=== PATIENT | female | born 1965 | race Caucasian/White ===

== ENCOUNTER 2017-01-19 17:11 | Inpatient (IN) | payer SELFPAY ==
[~2017-01-19] VITALS: Ht 165.1 cm; Wt 78.6 kg
[2017-01-19] VITALS (11 sets, daily range): BP systolic 131–271; BP diastolic 75–141; PULSE 72–96; RESP 16–20; TEMP 98.4; O2SAT 92–97
[2017-01-19] MEDS ORDERED: SODIUM CHLOR 0.9% 1000 ML INJ 1,000 ML IV ONE ×2 (17:27→19:45)
[2017-01-19] MEDS ORDERED: PROCHLORPERAZINE INJ 10 MG/2 ML VIAL IVP ONE (17:30)
[2017-01-19] MEDS ORDERED: KETOROLAC TROMETHAMINE 30 MG/ML (IVP) VIAL IVP ONE (17:30)
[2017-01-19] MEDS ORDERED: SODIUM CHLORIDE 0.9% FLUSH 10 ML FLUSH IVF PRN (17:30)
[2017-01-19] MEDS ORDERED: niCARdipine INJ 25 MG in SODIUM CHLOR 0.9% 250 ML INJ 250 ML IV ONE (17:30)
[2017-01-19] MEDS ORDERED: diphenhydrAMINE HCL 50 MG/ML VIAL IVP ONE (17:30)
--- NOTE | 2017-01-19 17:37 | PD ---
HPI Chief Complaint: Neuro Symptoms/ Deficits Time Seen by Provider: 17:36 (Elayne Altamirano) Time Seen by Provider: 17:35 (Mundo Aguillon MD) Travel History International Travel<30 days: No Contact w/Intl Traveler<30days: No Traveled to known affect area: No (Elayne Altamirano) International Travel<30 days: No Contact w/Intl Traveler<30days: No (Mundo Aguillon MD) History of Present Illness HPI 51-year-old female presents to the ED for evaluation of paresthesias and headache. Onset just before arrival. Patient states that she got in her car after work today and experienced pins and needles feeling of her leg which rapidly ascended to the right arm and face. This was followed by dull right sided headache and accompanying nausea and mild dizziness. She denies vision changes, chest pain, palpitations, shortness of breath, abdominal pain, vomiting , dysuria, weakness of the extremities. She denies chronic illnesses and takes no daily medications. She does state that her blood pressure sometimes runs high but she does not monitor it. (Elayne Altamirano) HPI 53-year-old female arrives complaining of paresthesias in the right face right arm and right leg. It started about an hour prior to ER arrival. When she arrived to the ER stroke assessment was performed and the patient had normal and symmetric motor function in the upper and lower extremities. The cranial nerves are equal and symmetrically intact. Speech memory and mentation were normal. Sensation to pin and light tough preserved throughout the upper and lower extremities bilaterally. In the absence of focal deficit TPA would serve no roll in the management of the patient and a stroke alert was not called. Cardene drip was initiated given marked hypertension upon arrival. (Mundo Aguillon MD) [facility] Past Medical History Diminished Hearing: No Hypertension: Yes Tetanus Vaccination: Unknown Influenza Vaccination: No ?: Not (Elayne Altamirano) Past Surgical History Surgical History: No Previous Surgery Hysterectomy: Yes (Elayne Altamirano) Social History Alcohol Use: No Tobacco Use: Yes (1 PPD) Substance Use: No (Elayne Altamirano) Allergies-Medications (Allergen,Severity, Reaction): Coded Allergies: No Known Allergies (Unverified , 01/19/17) Reported Meds & Prescriptions Reported Meds & Active Scripts Active No Active Prescriptions or Reported Medications (Mundo Aguillon MD) Review of Systems Except as stated in HPI: all other systems reviewed are Neg (Elayne Altamirano ) Except as stated in HPI: all other systems reviewed are Neg General / Constitutional: No: Fever Neurologic: Positive: Headache, Paresthesia, No: Weakness, Syncope, Focal Abnormalities, Coordination Problem, Tremor, Ataxia, Change in Mentation, Slurred Speech, Incontinence, Seizures (Mundo Aguillon MD) Physical Exam Narrative GENERAL: Well-nourished, well-developed white female in no acute distress. SKIN: Focused skin assessment warm/dry. Multiple tattoos. HEAD: Normocephalic. EYES: No scleral icterus. No injection or drainage. PERRLA. EOMI. No evidence of papilledema NECK: Supple, trachea midline. No JVD or lymphadenopathy. CARDIOVASCULAR: Regular rate and rhythm without murmurs, gallops, or rubs. 2+ DP and radial pulses bilaterally. RESPIRATORY: Breath sounds clear and equal bilaterally. No accessory muscle use. GASTROINTESTINAL: Abdomen soft, non-tender, nondistended. Active bowel sounds MUSCULOSKELETAL: No cyanosis, or edema. NEUROLOGICAL: Awake and alert. Cranial nerves II through XII intact. Motor and sensory grossly within normal limits. Five out of 5 muscle strength in all muscle groups. Normal speech. No ataxia. No pronator drift. BACK: Nontender without obvious deformity. No CVA tenderness. (Elayne Altamirano) Narrative GENERAL: WNWD, pleasant 51 yo F, appropriate distress SKIN: Warm and dry. HEAD: Atraumatic. Normocephalic. EYES: Pupils equal and round. No scleral icterus. No injection or drainage. ENT: No nasal bleeding or discharge. Mucous membranes pink and moist. NECK: Trachea midline. No JVD. CARDIOVASCULAR: Regular rate and rhythm. RESPIRATORY: No accessory muscle use. Clear to auscultation. Breath sounds equal bilaterally. GASTROINTESTINAL: Abdomen soft, non-tender, nondistended. Hepatic and splenic margins not palpable. MUSCULOSKELETAL: Extremities without clubbing, cyanosis, or edema. No obvious deformities. NEUROLOGICAL: No pronator drift. Cranial nerves III through XII are normal. Motor function in the upper and lower extremities is equal and symmetric and normal. The patient is ambulatory. Her speech memory mentation are normal. Sensation in the upper and lower extremities as well as the face is preserved with pin and fine touch. PSYCHIATRIC: Appropriate mood and affect; insight and judgment normal. (Mundo Aguillon MD) Data Data Last Documented VS Vital Signs Date Time Temp Pulse Resp B/P Pulse Ox O2 Delivery O2 Flow Rate FiO2 01/19/17 19:00 92 19 176/83 94 Nasal Cannula 2 01/19/17 17:13 98.4 VS reviewed (Mundo Aguillon MD) Orders Electrocardiogram (01/19/17 ) Complete Blood Count With Diff (01/19/17:) Basic Metabolic Panel (Bmp) (01/19/17:) Prothrombin Time / Inr (Pt) (01/19/17) Act Partial Throm Time (Ptt) (01/19/17) Ecg Monitoring (01/19/17) Iv Access Insert/Monitor (01/19/17:) Oximetry (01/19/17:) Sodium Chloride 0.9% Flush (Ns Flush) (01/19/17 17:30) Ketorolac Inj (Toradol Inj) (01/19/17 17:30) Prochlorperazine Inj (Compazine Inj) (01/19/17 17:30) Diphenhydramine Inj (Benadryl Inj) (01/19/17 17:30) Sodium Chlor 0.9% 1000 Ml Inj (Ns 1000 M (01/19/17 17:) Ckmb (Isoenzyme) Profile (01/19/17:) Troponin I (01/19/17:) Chest, Single Ap (01/19/17:27) Nicardipine Inj (Cardene Inj) (01/19/17 17:30) Ondansetron Inj (Zofran Inj) (01/19/17 18:15) CKMB (01/19/17 17:30) CKMB% (01/19/17 17:30) Admit Order (Ed Use Only) (01/19/17 19:14) (Mundo Aguillon MD) Labs Laboratory Tests Test 01/19/17 17:30 White Blood Count 9.8 TH/MM3 Red Blood Count 4.64 MIL/MM3 Hemoglobin 14.5 GM/DL Hematocrit 44.1 % Mean Corpuscular Volume 95.2 FL Mean Corpuscular Hemoglobin 31.4 PG Mean Corpuscular Hemoglobin 33.0 % Concent Red Cell Distribution Width 13.1 % Platelet Count 327 TH/MM3 Mean Platelet Volume 8.7 FL Neutrophils (%) (Auto) 54.4 % Lymphocytes (%) (Auto) 31.3 % Monocytes (%) (Auto) 6.4 % Eosinophils (%) (Auto) 5.3 % Basophils (%) (Auto) 2.6 % Neutrophils # (Auto) 5.3 TH/MM3 Lymphocytes # (Auto) 3.1 TH/MM3 Monocytes # (Auto) 0.6 TH/MM3 Eosinophils # (Auto) 0.5 TH/MM3 Basophils # (Auto) 0.3 TH/MM3 CBC Comment DIFF FINAL Differential Comment Prothrombin Time 10.0 SEC Prothromb Time International 0.9 RATIO Ratio Activated Partial 27.6 SEC Thromboplast Time Sodium Level 142 MEQ/L Potassium Level 3.6 MEQ/L Chloride Level 106 MEQ/L Carbon Dioxide Level 25.7 MEQ/L Anion Gap 10 MEQ/L Blood Urea Nitrogen 26 MG/DL Creatinine 0.84 MG/DL Estimat Glomerular Filtration 71 ML/MIN Rate Random Glucose 88 MG/DL Calcium Level 9.7 MG/DL Total Creatine Kinase 128 U/L Creatine Kinase MB 2.5 NG/ML Troponin I LESS THAN 0.02 NG/ML (Mundo Aguillon MD) [facility] Medical Decision Making Medical Screen Exam Complete: Yes Emergency Medical Condition: Yes Differential Diagnosis Acute cephalgia versus ICH versus hypertensive urgency versus hypertensive emergency versus electrolyte abnormality versus Narrative Course 51-year-old female presents to the ED for evaluation of paresthesias and headache. Onset just before arrival. Patient endorses pending the needles in the right leg which rapidly ascended to the right arm and face. This was followed shortly by a dull right-sided headache with nausea and dizziness. Denies vision changes, chest pain, palpitations,'s SOB, abdominal pain, and/V, weakness of the extremities. BP 271/133 on presentation. Physical exam reveals a nontoxic-appearing white female in no acute distress. No papilledema , no focal neural deficits. IV was established. Patient was placed on continuous monitoring. She was administered IV Toradol, Benadryl and Compazine. Cardene drip was initiated. CBC: WBC 9.8, hemoglobin 14.5. INR 0.9. CMP: BUN 26 Cardiac enzymes: Negative 1. EKG: Rate 72, sinus rhythm with short HI interval. Normal axis. No ST elevations or depressions. Reviewed by Dr. Aguillon. CT of the head: Small area of pontine hemorrhage. Nonspecific white matter densities. Contrast MRI recommended. On recheck the patient reports improvement of her headache symptoms. BP currently 176/83. This is hypertensive emergency with pontine hemorrhage. MRI ordered. Call placed to Dr. Laurent. He recommends admission to the [facility] and will follow the patient. I spoke to Dr. Lara who agrees to accept the patient to the service. Please see neuro and medicine notes for disposition. ( Elayne Altamirano) Medical Screen Exam Complete: Yes Emergency Medical Condition: Yes Medical Record Reviewed: Yes Differential Diagnosis Hypertensive encephalopathy, paresthesia, medication side effect, in the absence of a focal neurologic deficit CVA is considered less likely Narrative Course Please refer to [facility] note. (Mundo Aguillon MD) Scripts No Active Prescriptions or Reported Meds Elayne Altamirano January 19, 2017 17:37 Mundo Aguillon MD January 20, 2017 08:08
[2017-01-19 18:01] LABS: AUTOMATED NEUTROPHIL # 5.3 TH/MM3 (1.8-7.7); BASOPHIL # 0.3 TH/MM3 (0-0.2); BASOPHIL % 2.6 % (0.0-2.0); EOSINOPHIL # 0.5 TH/MM3 (0-0.4); EOSINOPHIL % 5.3 % (0.0-4.0); HEMATOCRIT 44.1 % (35.0-46.0); HEMO FLAGS DIFF FINAL; LYMPH % 31.3 % (9.0-44.0); LYMPHOCYTE # 3.1 TH/MM3 (1.0-4.8); MEAN CELL VOLUME 95.2 FL (80.0-100.0); MEAN CORPUSCULAR HEMOGLOBIN 31.4 PG (27.0-34.0); MONO % 6.4 % (0.0-8.0); NEUT % 54.4 % (16.0-70.0); PLATELET COUNT 327 TH/MM3 (150-450); RED BLOOD COUNT 4.64 MIL/MM3 (4.00-5.30); RED CELL DISTRIBUTION WIDTH 13.1 % (11.6-17.2); WHITE BLOOD COUNT 9.8 TH/MM3 (4.0-11.0)
[2017-01-19 18:09] LABS: APTT (PATIENT) 27.6 SEC (24.3-30.1); INTERNATIONAL NORMALIZED RATIO 0.9 RATIO
[2017-01-19] MEDS ORDERED: ONDANSETRON HCL 4 MG/2 ML VIAL IV PUSH ONE (18:15)
[2017-01-19 18:25] LABS: ANION GAP 10 MEQ/L (5-15); BICARBONATE 25.7 MEQ/L (21.0-32.0); BLOOD UREA NITROGEN 26 MG/DL (7-18); CHLORIDE 106 MEQ/L (98-107); GLOMERULAR FILTRATION RATE 71 ML/MIN (>89); POTASSIUM 3.6 MEQ/L (3.5-5.1); SODIUM (NA) 142 MEQ/L (136-145)
[2017-01-19 18:29] LABS: CREATINE KINASE 128 U/L (26-192)
--- NOTE | 2017-01-19 18:35 | RADRPT ---
EXAM DATE/TIME: 01/19/2017 17:47 [facility] COMPARISON: No previous studies available for comparison. INDICATIONS : Complains of heart palpitations. Shortness of breath. MEDICAL HISTORY : None. SURGICAL HISTORY : None. ENCOUNTER: Initial ACUITY: 1 day PAIN SCORE: Non-responsive. LOCATION: chest FINDINGS: A single view of the chest demonstrates the lungs to be symmetrically aerated without evidence of mas s, infiltrate or effusion. The cardiomediastinal contours are unremarkable. Osseous structures are intact. CONCLUSION: No acute disease. Jerad Hernandes MD on January 19, 2017 at 18:32 Board Certified Radiologist. This report was verified electronically.
[2017-01-19 18:41] LABS: CKMB 2.5 NG/ML (0.5-3.6)
[2017-01-19] MEDS ORDERED: niCARdipine INJ 25 MG in SODIUM CHLOR 0.9% 250 ML INJ 250 ML IV PRN (19:45)
[2017-01-19] MEDS ORDERED: ACETAMINOPHEN 325 MG TAB PO PRN ×2 (19:45→21:15)
[2017-01-19] MEDS ORDERED: BISACODYL 10 MG SUPP RECTAL PRN (19:45)
[2017-01-19] MEDS ORDERED: MORPHINE SULFATE 4 MG/ML INJ IV PRN (19:45)
[2017-01-19] MEDS ORDERED: ONDANSETRON HCL 4 MG/2 ML VIAL IVP PRN (19:45)
[2017-01-19] MEDS ORDERED: SODIUM CHLORIDE 0.9% FLUSH 10 ML FLUSH IV FLUSH PRN (19:45)
[2017-01-19] MEDS ORDERED: ACETAMINOPHEN/HYDROcodone 325 MG/5 MG TAB PO PRN (19:45)
--- NOTE | 2017-01-19 19:51 | HHI.HP ---
[facility] Service [facility] Primary Care Physician No Primary Care Physician Admission Diagnosis hypertensive emergency Diagnoses: Travel History International Travel<30 Days: No Contact w/Intl Traveler <30 Da: No Traveled to Known Affected Are: No Past Family Social History Allergies: Coded Allergies: No Known Allergies (Unverified , 01/19/17) Physical Exam Vital Signs Vital Signs Date Time Temp Pulse Resp B/P Pulse Ox O2 Delivery O2 Flow Rate FiO2 01/19/17 19:33 16 01/19/17 19:00 92 19 176/83 94 Nasal Cannula 2 01/19/17 18:45 89 19 183/88 92 Room Air 01/19/17 18:30 88 19 196/88 94 Room Air 01/19/17 18:15 89 19 215/102 94 Room Air 01/19/17 18:07 97 Room Air 01/19/17 18:00 72 20 244/134 97 Room Air 01/19/17 17:25 76 19 271/133 96 Room Air 01/19/17 17:13 98.4 90 16 219/141 97 Physical Exam GENERAL: This is a well-nourished, well-developed patient, in no apparent distress. SKIN: No rashes, ecchymoses or lesions. Cool and dry. HEAD: Atraumatic. Normocephalic. No temporal or scalp tenderness. EYES: Pupils equal round and reactive. Extraocular motions intact. No scleral icterus. No injection or drainage. ENT: Nose without bleeding, purulent drainage or septal hematoma. Throat without erythema, tonsillar hypertrophy or exudate. Uvula midline. Airway patent. NECK: Trachea midline. No JVD or lymphadenopathy. Supple, nontender, no meningeal signs. CARDIOVASCULAR: Regular rate and rhythm without murmurs, gallops, or rubs. RESPIRATORY: Clear to auscultation. Breath sounds equal bilaterally. No wheezes , rales, or rhonchi. GASTROINTESTINAL: Abdomen soft, non-tender, nondistended. No hepato-splenomegaly , or palpable masses. No guarding. MUSCULOSKELETAL: Extremities without clubbing, cyanosis, or edema. No joint tenderness, effusion, or edema noted. No calf tenderness. Negative Homans sign bilaterally. NEUROLOGICAL: Awake and alert. Cranial nerves II through XII intact. Motor and sensory grossly within normal limits. Five out of 5 muscle strength in all muscle groups. Normal speech. Laboratory Laboratory Tests Test 01/19/17 17:30 White Blood Count 9.8 Red Blood Count 4.64 Hemoglobin 14.5 Hematocrit 44.1 Mean Corpuscular Volume 95.2 Mean Corpuscular Hemoglobin 31.4 Mean Corpuscular Hemoglobin 33.0 Concent Red Cell Distribution Width 13.1 Platelet Count 327 Mean Platelet Volume 8.7 Neutrophils (%) (Auto) 54.4 Lymphocytes (%) (Auto) 31.3 Monocytes (%) (Auto) 6.4 Eosinophils (%) (Auto) 5.3 Basophils (%) (Auto) 2.6 Neutrophils # (Auto) 5.3 Lymphocytes # (Auto) 3.1 Monocytes # (Auto) 0.6 Eosinophils # (Auto) 0.5 Basophils # (Auto) 0.3 CBC Comment DIFF FINAL Differential Comment Prothrombin Time 10.0 Prothromb Time International 0.9 Ratio Activated Partial 27.6 Thromboplast Time Sodium Level 142 Potassium Level 3.6 Chloride Level 106 Carbon Dioxide Level 25.7 Anion Gap 10 Blood Urea Nitrogen 26 Creatinine 0.84 Estimat Glomerular Filtration 71 Rate Random Glucose 88 Calcium Level 9.7 Total Creatine Kinase 128 Creatine Kinase MB 2.5 Troponin I LESS THAN 0.02 Result Diagram: 01/19/17 1730 01/19/17 173 Physician Certification Order for Inpatient Services The services are ordered in accordance with Medicare regulations or non- Medicare payer requirements, as applicable. In the case of services not specified as inpatient-only, they are appropriately provided as inpatient services in accordance with the 2-midnight benchmark. days is the estimated time the patient will need to remain in the hospital, assuming treatment plan goals are met and no additional complications. Jaja Ramírez MD January 19, 2017 19:51
--- NOTE | 2017-01-19 20:35 | RADRPT ---
EXAM DATE/TIME: 01/19/2017 20:19 [facility] COMPARISON: No previous studies available for comparison. INDICATIONS : Hypertension, numbness both hands RADIATION DOSE: 31.73 CTDIvol (mGy) MEDICAL HISTORY : Hypertension. SURGICAL HISTORY : None. ENCOUNTER: Initial ACUITY: 1 day PAIN SCALE: 3/10 LOCATION: Bilateral upper extremity TECHNIQUE: Multiple contiguous axial images were obtained of the head. Using automated exposure control and adj ustment of the mA and/or kV according to patient size, radiation dose was kept as low as reasonably a chievable to obtain optimal diagnostic quality images. FINDINGS: There is a small focus of spontaneously increased density in the posterior left paramedian sammy consi stent with small brainstem hemorrhage. This measures about 8 mm in size at present. There is minimal adjacent parenchymal hypodensity. There is no evidence of macroscopic hemorrhage elsewhere in the bra in. There are occasional small areas of diminished white matter attenuation present including within the quintanilla array bilaterally and the right internal and external capsules. There is nothing to otherw ise suggest acute infarction. The ventricles are symmetric and normal. Extracranial structures are be nign and intact. CONCLUSION: Small area of pontine hemorrhage. Occasional areas of white matter hypodensity which are nonspecific. Followup, ideally with contrast M RI would be suggested. Jerad Hernandes MD on January 19, 2017 at 20:29 Board Certified Radiologist. This report was verified electronically.
[2017-01-19] MEDS ORDERED: SODIUM CHLORIDE 0.9% FLUSH 10 ML FLUSH IV FLUSH SCH (21:00)
--- NOTE | 2017-01-19 21:08 | HHI.HP ---
HPI Service Critical Care Medicine Primary Care Physician No Primary Care Physician Admission Diagnosis hypertensive emergency Diagnosis: Travel History International Travel<30 Days: No Contact w/Intl Traveler <30 Da: No Traveled to Known Affected Are: No History of Present Illness 51-year-old female presents for evaluation of paresthesias and headache. Onset of symptoms just prior to arrival. Patient states that she got in her car after work today and experienced pins and needles feeling of her leg which rapidly ascended to the right arm and face. This was followed by dull right sided headache and accompanying nausea and mild dizziness. 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 Review of Systems Constitutional: COMPLAINS OF: Diaphoretic episodes, Dizziness, DENIES: Fatigue , Fever, Weight gain, Weight loss, Chills, Change in appetite, Night Sweats Endocrine: DENIES: Abnorml menstrual pattern, Heat/cold intolerance, Polydipsia , Polyuria, Polyphagia Eyes: DENIES: Blurred vision, Diplopia, Eye inflammation, Eye pain, Vision loss , Photosensitivity, Double Vision Ears, nose, mouth, throat: COMPLAINS OF: Tinnitus, DENIES: Hearing loss, Vertigo, Nasal discharge, Oral lesions, Throat pain, Hoarseness, Ear Pain, Running Nose, Epistaxis, Sinus Pain, Toothache, Odynophagia Respiratory: DENIES: Apneas, Cough, Snoring, Wheezing, Hemoptysis, Sputum production, Shortness of breath Cardiovascular: DENIES: Chest pain, Palpitations, Syncope, Dyspnea on Exertion , PND, Lower Extremity Edema, Orthopnea, Claudication Gastrointestinal: DENIES: Abdominal pain, Black stools, Bloody stools, Constipation, Diarrhea, Nausea, Vomiting, Difficulty Swallowing, Anorexia Genitourinary: DENIES: Abnormal vaginal bleeding, Dysmenorrhea, Dyspareunia, Sexual dysfunction, Urinary frequency, Urinary incontinence, Urgency, Hematuria , Dysuria, Nocturia, Vaginal discharge Past Family Social History Allergies: Coded Allergies: No Known Allergies (Unverified , 01/19/17) Past Medical History Hypertension Past Surgical History Hysterectomy Reported Medications Reported Meds & Active Scripts Active No Active Prescriptions or Reported Medications Active Ordered Medications Current Medications Medications (Trade) Dose Ordered Sig/Keisha Route PRN Reason Start Time Stop Time Status Last Admin Dose Admin Bisacodyl (Dulcolax Supp) 10 mg DAILY PRN RECTAL CONSTIPATION 01/19/17 19:45 Acetaminophen/ Hydrocodone Bitart (Winifred 5-325 Mg) 1 tab Q4H PRN PO PAIN SCALE 3 TO 5 01/19/17 19:45 Lorazepam 1 mg 1 mg ONCE PRN IV PUSH CLAUSTROPHOBIA 01/19/17 20:00 01/22/17 19:59 01/19/17 21:55 Sodium Chloride (NS 1000 ml Inj) 1,000 ml @ 84 mls/hr [id number] IV 01/19/17 21:03 Sodium Chloride (NS Flush) 2 ml UNSCH PRN .XX FLUSH AFTER USING IV ACCESS 01/19/17 21:15 Sodium Chloride (NS Flush) 2 ml BID .XX 01/20/17 09:00 Acetaminophen (Tylenol) 650 mg Q6H PRN PO PAIN 1-10 AND/OR FEVER >101F 01/19/17 21:15 01/20/17 02:41 Morphine Sulfate (Morphine Inj) 2 mg Q2H PRN IV PAIN SCALE 6 TO 10 01/19/17 21:15 Famotidine (Pepcid Inj) 20 mg Q12HR IV PUSH 01/20/17 09:00 Ondansetron HCl (Zofran Inj) 4 mg Q6H PRN IV NAUSEA OR VOMITING 01/19/17 21:15 Metoclopramide HCl (Reglan Inj) 10 mg Q6H PRN IV NAUSEA OR VOMITING 01/19/17 21:15 Docusate Sodium (Colace) 100 mg BID PO 01/20/17 09:00 Miscellaneous Information 1 [id number] XX 01/19/17 21:15 01/19/17 21:15 Chlorhexidine Gluconate (Chlorhexidine 2% Cloth) 3 pack Taper DAILY@04 TOP 01/20/17 04:00 01/16/18 03:59 01/20/17 02:42 Chlorhexidine Gluconate 3 pack 3 pack UNSCH PRN TOP HYGIENIC CARE 01/19/17 21:15 Nicardipine HCl/ Sodium Chloride (Cardene Inj/NS 250 ml Inj) 260 ml @ 0 mls/hr TITRATE IV 01/19/17 21:15 01/20/17 02:41 Hydralazine HCl (Apresoline Inj) 20 mg Q4H PRN IV PUSH SBP>160, DBP>90 01/19/17 21:15 Family History Noncontributory Social History Negative for alcohol or illicit drug abuse Smokes one pack per day Physical Exam Vital Signs Vital Signs Date Time Temp Pulse Resp B/P Pulse Ox O2 Delivery O2 Flow Rate FiO2 01/19/17 19:50 92 16 162/76 96 01/19/17 19:33 16 01/19/17 19:00 92 19 176/83 94 Nasal Cannula 2 01/19/17 18:45 89 19 183/88 92 Room Air 01/19/17 18:30 88 19 196/88 94 Room Air 01/19/17 18:15 89 19 215/102 94 Room Air 01/19/17 18:07 97 Room Air 01/19/17 18:00 72 20 244/134 97 Room Air 01/19/17 17:25 76 19 271/133 96 Room Air 01/19/17 17:13 98.4 90 16 219/141 97 Physical Exam GENERAL: Well-nourished, well-developed patient. SKIN: Warm and dry. HEAD: Normocephalic. EYES: No scleral icterus. No injection or drainage. NECK: Supple, trachea midline. No JVD or lymphadenopathy. CARDIOVASCULAR: Regular rate and rhythm without murmurs, gallops, or rubs. RESPIRATORY: Breath sounds equal bilaterally. No accessory muscle use. GASTROINTESTINAL: Abdomen soft, non-tender, nondistended. MUSCULOSKELETAL: No cyanosis, or edema. BACK: Nontender without obvious deformity. No CVA tenderness. EXTREMITIES: No clubbing cyanosis or edema Laboratory Laboratory Tests Test 01/19/17 17:30 White Blood Count 9.8 Red Blood Count 4.64 Hemoglobin 14.5 Hematocrit 44.1 Mean Corpuscular Volume 95.2 Mean Corpuscular Hemoglobin 31.4 Mean Corpuscular Hemoglobin 33.0 Concent Red Cell Distribution Width 13.1 Platelet Count 327 Mean Platelet Volume 8.7 Neutrophils (%) (Auto) 54.4 Lymphocytes (%) (Auto) 31.3 Monocytes (%) (Auto) 6.4 Eosinophils (%) (Auto) 5.3 Basophils (%) (Auto) 2.6 Neutrophils # (Auto) 5.3 Lymphocytes # (Auto) 3.1 Monocytes # (Auto) 0.6 Eosinophils # (Auto) 0.5 Basophils # (Auto) 0.3 CBC Comment DIFF FINAL Differential Comment Prothrombin Time 10.0 Prothromb Time International 0.9 Ratio Activated Partial 27.6 Thromboplast Time Sodium Level 142 Potassium Level 3.6 Chloride Level 106 Carbon Dioxide Level 25.7 Anion Gap 10 Blood Urea Nitrogen 26 Creatinine 0.84 Estimat Glomerular Filtration 71 Rate Random Glucose 88 Calcium Level 9.7 Total Creatine Kinase 128 Creatine Kinase MB 2.5 Troponin I LESS THAN 0.02 Result Diagram: 01/19/17 1730 01/19/17 1730 Imaging Last 24 hours Impressions Brain MRI 01/19/[id number] Signed Impressions: Service Date/Time: Thursday, January 19, 2017 22:12 - CONCLUSION: Findings generally suspicious for demyelinating disease such as multiple sclerosis. Abnormal signal focus in the brainstem may be an area of tumefactive MS, however there may separately be a cavernoma in this region. Jerad Hernandes MD Head CT 01/19/17 1950 Signed Impressions: Service Date/Time: Thursday, January 19, 2017 20:19 - CONCLUSION: Small area of pontine hemorrhage. Occasional areas of white matter hypodensity which are nonspecific. Followup, ideally with contrast MRI would be suggested. Jerad Hernandes MD Chest X-Ray 01/19/[id number] Signed Impressions: Service Date/Time: Thursday, January 19, 2017 17:47 - CONCLUSION: No acute disease. Jerad Hernandes MD Assessment and Plan Assessment and Plan Pontine ICH - No neurosurgical intervention indicated - Blood pressure control - SBP goal less than 150 - Neurosurgery consult - No coagulopathy Hypertension - Nicardipine drip - SBP goal less than 150 - Hydralazine when necessary Tobacco use disorder - DuoNeb's when necessary - Cessation provided DVT GI prophylaxis - Teds SCDs - No pharmacological DVT prophylaxis due to ICH - Pepcid Critical Care: The total critical care time was 35 minutes. Time to perform other separately billable procedures was not included in the critical care time. Velasquez Lara MD January 19, 2017 21:08
[2017-01-19] MEDS ORDERED: CHLORHEXIDINE GLUCONATE 2 % 1 PACK (2 CLOTHS) TOP PRN (21:15)
[2017-01-19] MEDS ORDERED: RESP: ALBUTEROL 2.5 MG/IPRATROPIUM 0.5 MG NEB (PRN) INH (21:15)
[2017-01-19] MEDS ORDERED: SODIUM CHLORIDE 0.9% FLUSH 10 ML FLUSH PRN (21:15)
[2017-01-19] MEDS ORDERED: MISCELLANEOUS NURSING INFORMATION XX SCH (21:15)
[2017-01-19] MEDS: LORazepam 2 MG/ML VIAL IV PUSH PRN (21:55)
[2017-01-19] MEDS ORDERED: GADODIAMIDE PF 287 MG/ML 5 ML VIAL (for RAD MRI) IV ONE (22:53)
--- NOTE | 2017-01-19 23:10 | RADRPT ---
EXAM DATE/TIME: 01/19/2017 22:12 [facility] COMPARISON: CT BRAIN W/O CONTRAST, January 19, 2017, 20:19. INDICATIONS : Aneurysm. Right hand and right foot numbness. CONTRAST: 16 cc Omniscan (gadodiamide) IV MEDICAL HISTORY : None. SURGICAL HISTORY : Hysterectomy. ENCOUNTER: Subsequent ACUITY: 1 day PAIN SCORE: 3/10 LOCATION: cranial TECHNIQUE: Multiplanar, multisequence MRI of the brain was performed both prior to and following the administrat ion of paramagnetic contrast. FINDINGS: There are scattered areas of focally altered white matter signal intensity and T2 prolongation, gener ally more numerous on the right than the left involving periventricular white matter primarily. The a ppearance is worrisome for demyelinating process such as MS. Some similar though slightly more hetero geneous signal change is present in the brainstem, specifically at the pontomedullary junction where a ring configuration signal abnormality is identified. Adjacent to this, a small focus of encephaloma lacia is present in the left paramedian central sammy. There is some hemosiderin deposition suspected in this region based upon significant signal dropout on the susceptibility weighted sequence. There i s no significant abnormal parenchymal contrast enhancement associated with any of these areas. There is small venous angioma noted in the parafalcine high convexity right frontal region. There is no dale dence of acute infarction. CONCLUSION: Findings generally suspicious for demyelinating disease such as multiple sclerosis. Abnormal signal f ocus in the brainstem may be an area of tumefactive MS, however there may separately be a cavernoma i n this region. Jerad Hernandes MD on January 19, 2017 at 22:54 Board Certified Radiologist. This report was verified electronically.
[2017-01-20] VITALS (11 sets, daily range): BP systolic 127–158; BP diastolic 57–81; PULSE 64–91; RESP 14–24; TEMP 97.6–98.2; O2SAT 93–96
[2017-01-20] MEDS: niCARdipine INJ 25 MG in SODIUM CHLOR 0.9% 250 ML INJ 250 ML IV SCH ×5 (02:41→17:40)
[2017-01-20] MEDS: CHLORHEXIDINE GLUCONATE 2 % 1 PACK (2 CLOTHS) TOP SCH (02:42)
[2017-01-20 04:38] LABS: BASOPHIL # 0.1 TH/MM3 (0-0.2); BASOPHIL % 0.7 % (0.0-2.0); EOSINOPHIL # 0.5 TH/MM3 (0-0.4); EOSINOPHIL % 5.8 % (0.0-4.0); HEMATOCRIT 41.4 % (35.0-46.0); HEMO FLAGS DIFF FINAL; LYMPH % 19.7 % (9.0-44.0); LYMPHOCYTE # 1.8 TH/MM3 (1.0-4.8); MEAN CELL VOLUME 94.1 FL (80.0-100.0); MEAN CORPUSCULAR HEMOGLOBIN 31.7 PG (27.0-34.0); MEAN CORPUSCULAR HGB CONC 33.7 % (32.0-36.0); MONO % 8.4 % (0.0-8.0); NEUT % 65.4 % (16.0-70.0); PLATELET COUNT 289 TH/MM3 (150-450); RED CELL DISTRIBUTION WIDTH 13.3 % (11.6-17.2); WHITE BLOOD COUNT 9.1 TH/MM3 (4.0-11.0)
[2017-01-20 05:00] LABS: ALT (GPT) 18 U/L (10-53); ANION GAP 6 MEQ/L (5-15); AST (GOT) 12 U/L (15-37); BICARBONATE 26.9 MEQ/L (21.0-32.0); BLOOD UREA NITROGEN 14 MG/DL (7-18); CHLORIDE 105 MEQ/L (98-107); GLOMERULAR FILTRATION RATE 116 ML/MIN (>89); POTASSIUM 3.4 MEQ/L (3.5-5.1); SODIUM (NA) 138 MEQ/L (136-145)
[2017-01-20 05:12] LABS: ALKALINE PHOSPHATASE 86 U/L (45-117); HDL CHOLESTEROL 60.8 MG/DL (40.0-60.0); LDL CHOLESTEROL 133 MG/DL (0-99); TOTAL BILIRUBIN ADULT 0.3 MG/DL (0.2-1.0)
[2017-01-20 07:14] LABS: AMPHETAMINE, URINE NEG (NEG); BARBITURATES, URINE NEG (NEG); COCAINE, URINE NEG (NEG)
[2017-01-20] MEDS: SODIUM CHLOR 0.9% 1000 ML INJ 1,000 ML IV SCH ×3 (08:58→20:02)
[2017-01-20] MEDS: SODIUM CHLORIDE 0.9% FLUSH 10 ML FLUSH SCH ×2 (09:00→20:03)
[2017-01-20] MEDS: DOCUSATE SODIUM 100 MG CAP PO SCH ×2 (09:40→20:03)
[2017-01-20] MEDS: FAMOTIDINE 20 MG/2 ML VIAL IV PUSH SCH ×2 (09:40→20:02)
[2017-01-20] MEDS: MORPHINE SULFATE 4 MG/ML INJ IV PRN ×4 (09:41→20:22)
[2017-01-20] MEDS: ONDANSETRON HCL 4 MG/2 ML VIAL IV PRN ×2 (09:50→16:49)
--- NOTE | 2017-01-20 13:31 | EKG ---
Date Performed: 01/19/2017 Time Performed: 17:28:51 PTAGE: 51 years EKG: Sinus rhythm WITH SINUS ARRHYTHMIA WITH SHORT ND INTERVAL MODERATE VOLTAGE CRITERIA FOR LVH, CONSIDER NORMAL VARI ANT BORDERLINE ECG NO PREVIOUS TRACING DOCTOR: Rocio Rubalcava Interpretating Date/Time 01/20/2017 13:29:40
--- NOTE | 2017-01-20 13:48 | MB ---
cc: LI MONTIEL M.D. DATE OF CONSULTATION: 01/20/2017 REASON FOR CONSULTATION: Possible brainstem hemorrhage. PRESENT ILLNESS 51-year-old obese, female presented to emergency room last evening due to onset of numbness in the right face, arm and leg. She denies any headaches and initially some nausea but no nausea and vomiting. Vomiting of bilious material. She denies any weakness although as noted difficulty with gait, namely because of the numbness in the right leg and perception related thereof. Denies any double vision or any loss of vision. CT scan of the head obtained last evening shows a 8 mm hyper density in the left lower pontine area with some periventricular white matter changes. MRI scan reviewed reveals this T2 white matter changes in the periventricular supratentorial as well as involving the pontomedullary junction. The question of hemosiderin deposits or cavernous angioma. The patient was very hypertensive with a systolic blood pressure to 270s on presentation and has been on Cardene drip and the blood pressures well regulated this point. PAST MEDICAL HISTORY 1. Hypotension 2. Hysterectomy. MEDICATIONS None. SOCIAL HISTORY She denies alcohol use. Smokes a pack of cigarettes every day. she is single. LABORATORY FINDINGS White blood cell count 9.1, hemoglobin 14, platelet count 289, PT 10, INR 0.9, PTT 27.6, sodium 138, potassium 3.4, BUN 14, creatinine 0.55, glucose 97. Toxicology screen is negative. REVIEW OF SYSTEMS Denies any headaches complains of right-sided numbness in the face, arm and leg and complains of unsteadiness because of numbness in the leg and foot. She denies any vertigo. Denies any double vision, blurred vision or any loss of vision. Denies any weakness. Denies any incontinence. No history of fevers or chills or recent weight gain or weight loss. No previous history of any stroke-like symptoms. No history of multiple sclerosis. No chest pain or shortness of breath, no abdominal pain. PHYSICAL EXAMINATION VITAL SIGNS: Temperature 97.9, pulse is 69, respiratory rate 16, blood pressure 158/78, ox saturation 96% on room air. HEAD, EYES, EARS, NOSE, AND THROAT: No Flood or raccoon sign normocephalic, atraumatic. NECK: Neck is supple. CHEST: Clear to incision bilaterally. HEART: Regular rate rhythm, normal S1, S2. ABDOMEN: Soft, nontender, positive bowel sounds. EXTREMITIES: No edema. NEUROLOGICALLY: She is awake, alert, Pupils are equal, reactive. Extra muscles intact. Face symmetric tongue is midline. She does have numbness to light touch sensation in the right face, arm and leg. Equivocal Babinski response with a motor strength in upper or lower extremities 5/5. No dysmetria. Speech is fluent. IMPRESSION 1. Pontomedullary brain stem hyper density questionable small area of hypertensive bleed versus cavernous angioma. 2. Extensive periventricular white matter changes, questionable demyelinating process. 3. Malignant hypotension. PLAN Continue with regulation of her hypertension to keep the systolic blood pressure less than 160 range. She will need rehabilitation and physical, occupational therapy. She does not require any neurosurgical intervention. I would recommend a neurology evaluation to rule out any demyelinating process. Recommend DVT and gastrointestinal stress ulcer prophylaxis. MD MANAV Vasquez/shante /12:33 PM /1:35 PM
[2017-01-20] MEDS: METOCLOPRAMIDE HCL 10 MG/2 ML VIAL IV PRN ×2 (13:51→20:02)
[2017-01-20] MEDS ORDERED: LABETALOL HCL 100 MG/20 ML VIAL IV PUSH PRN (15:15)
[2017-01-20] MEDS: LISINOPRIL 10 MG TAB PO SCH (15:15)
--- NOTE | 2017-01-20 15:16 | HHI.CCPN ---
Subjective Remarks/Hospital Course 01/19: 51-year-old female presents for evaluation of paresthesias and headache. Onset of symptoms just prior to arrival. Patient states that she got in her car after work today and experienced pins and needles feeling of her leg which rapidly ascended to the right arm and face. This was followed by dull right sided headache and accompanying nausea and mild dizziness. 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 01/20: Resting in bed comfortably. Awake and alert. Moving all 4 extremities. Complaining of tingling on right side of body. Objective Vital Signs Date Time Temp Pulse Resp B/P Pulse Ox O2 Delivery O2 Flow Rate FiO2 01/20/17 14:00 79 01/20/17 12:00 98.2 15 157/81 96 01/20/17 07:00 Room Air 01/19/17 23:03 2 Result Diagram: 01/20/17 0424 01/20/17 0424 Imaging Last 24 hours Impressions Brain MRI 01/19/172052 Signed Impressions: Service Date/Time: Thursday, January 19, 2017 22:12 - CONCLUSION: Findings generally suspicious for demyelinating disease such as multiple sclerosis. Abnormal signal focus in the brainstem may be an area of tumefactive MS, however there may separately be a cavernoma in this region. Jerad Hernandes MD Head CT 01/19/17 1950 Signed Impressions: Service Date/Time: Thursday, January 19, 2017 20:19 - CONCLUSION: Small area of pontine hemorrhage. Occasional areas of white matter hypodensity which are nonspecific. Followup, ideally with contrast MRI would be suggested. Jerad Hernandes MD Chest X-Ray 01/19/17 1727 Signed Impressions: Service Date/Time: Thursday, January 19, 2017 17:47 - CONCLUSION: No acute disease. Jerad Hernandes MD Objective Remarks GENERAL: Well-nourished, well-developed patient. SKIN: Warm and dry. HEAD: Normocephalic. EYES: No scleral icterus. No injection or drainage. NECK: Supple, trachea midline. No JVD or lymphadenopathy. CARDIOVASCULAR: Regular rate and rhythm without murmurs, gallops, or rubs. RESPIRATORY: Breath sounds equal bilaterally. No accessory muscle use. GASTROINTESTINAL: Abdomen soft, non-tender, nondistended. MUSCULOSKELETAL: No cyanosis, or edema. BACK: Nontender without obvious deformity. No CVA tenderness. 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 Laurent). Recommended neurology consult to evaluate for demyelinating process based on MRI results - No coagulopathy Hypertension - Nicardipine drip - SBP goal less than 150 - Hydralazine when necessary. Start lisinopril 10 mg by mouth daily. Clonidine /labetalol prn Tobacco use disorder - DuoNeb's when necessary - Cessation provided DVT GI prophylaxis - Teds SCDs - No pharmacological DVT prophylaxis due to ICH - Pepcid Consult and transfer to hospitalist service for further medical management starting 01/21. Critical care will be signing off. Please reconsult if needed. Raj Youssef MD January 20, 2017 15:16
--- NOTE | 2017-01-20 15:46 | EC ---
Study Study Date:01/20/2017 STUDY CONCLUSIONS SUMMARY LEFT VENTRICLE: The cavity size was normal. Wall thickness was normal. Systolic function was normal. The estimated ejection fraction was in the range of 60% to 65%. Wall motion was normal; there were no regional wall motion abnormalities. If LV function is below 40, please consider prescribing an ACEI or ARB or document rationale for non-use. PROCEDURE DATA STUDY STATUS: Elective. Procedure: Transthoracic echocardiography. Image quality was good. Scanning was performed from the parasternal, apical, and subcostal acoustic windows. Study completion: The patient tolerated the procedure well. Transthoracic echocardiography. M-mode, complete 2D, complete spectral Doppler, and color Doppler. Patient status: Inpatient. CARDIAC ANATOMY LEFT VENTRICLE: The cavity size was normal. Wall thickness was normal. Systolic function was normal. The estimated ejection fraction was in the range of 60% to 65%. Wall motion was normal; there were no regional wall motion abnormalities. AORTIC VALVE: Trileaflet; mildly thickened leaflets. Doppler: Transvalvular velocity was within the normal range. There was no stenosis. No regurgitation. Mean gradient: 10mm Hg (S). Peak gradient: 26mm Hg (S). AORTA: Aortic root: The aortic root was normal in size. MITRAL VALVE: Structurally normal valve. Doppler: Transvalvular velocity was within the normal range. There was no evidence for stenosis. No regurgitation. Mean gradient: 2mm Hg (D). LEFT ATRIUM: The atrium was normal in size. RIGHT VENTRICLE: The cavity size was normal. Wall thickness was normal. PULMONIC VALVE: Doppler: Transvalvular velocity was within the normal range. There was no evidence for stenosis. No regurgitation. TRICUSPID VALVE: Structurally normal valve. Doppler: Transvalvular velocity was within the normal range. No regurgitation. PULMONARY ARTERY: The main pulmonary artery was normal-sized. Systolic pressure was within the normal range. RIGHT ATRIUM: The atrium was normal in size. PERICARDIUM: There was no pericardial effusion. SYSTEMIC VEINS: Inferior vena cava: The vessel was normal in size. BASIC MEASUREMENTS ADULT NORMAL Left ventricle LV internal dimension, ED, chordal level, 44.5 mm 43-52 PLAX LV internal dimension, ES, chordal level, 30.6 mm 23-38 PLAX Fractional shortening, chordal level, PLAX 31 % >29 LV posterior wall thickness, ED 8.76 mm IVS/LVPW ratio, ED 1.23 <1.3 Ventricular septum Septal thickness, ED 10.8 mm Aortic valve Leaflet separation 18 mm 15-26 Left atrium Anterior-posterior dimension 33 mm Right ventricle RV internal dimension, ED, PLAX 19.9 mm 19-38 BASIC MEASUREMENTS ADULT NORMAL Aortic valve Leaflet separation 18 mm 15-26 Aorta Root diameter, ED 28 mm 20-37 DOPPLER MEASUREMENTS ADULT NORMAL Aortic valve Peak velocity, S 254 cm/s Mean velocity, S 145 cm/s VTI, S 45.6 cm Mean gradient, S 10 mm Hg Peak gradient, S 26 mm Hg Mitral valve Peak E-wave velocity 64.2 cm/s Peak A-wave velocity 103 cm/s Mean velocity, D 70.1 cm/s Mean gradient, D 2 mm Hg Peak E/A ratio 0.6 Tricuspid valve Regurgitant peak velocity 193 cm/s Peak RV-RA gradient, S 15 mm Hg Maximal regurgitant velocity 193 cm/s LEGEND: Mean values are shown as u=mean value. Asterisk (*) [place] values outside specified normal range. Prepared and signed by Davie Lew [id number]
[2017-01-20] MEDS ORDERED: POTASSIUM CHLORIDE 10 MEQ CONTROLLED RELEASE TAB PO ONE (16:45)
[2017-01-20] MEDS: cloNIDine HCL 0.1 MG TAB PO PRN (20:03)
[2017-01-20] MEDS: hydrALAZINE HCL 20 MG/ML VIAL IV PUSH PRN (23:12)
[2017-01-21] VITALS (11 sets, daily range): BP systolic 129–156; BP diastolic 61–82; PULSE 64–77; RESP 12–26; TEMP 97.9–98.7; O2SAT 96–98
[2017-01-21] MEDS: ONDANSETRON HCL 4 MG/2 ML VIAL IV PRN ×4 (00:45→18:58)
[2017-01-21] MEDS: MORPHINE SULFATE 4 MG/ML INJ IV PRN ×7 (02:52→23:34)
[2017-01-21] MEDS: CHLORHEXIDINE GLUCONATE 2 % 1 PACK (2 CLOTHS) TOP SCH (04:00)
[2017-01-21 04:11] LABS: AUTOMATED NEUTROPHIL # 4.9 TH/MM3 (1.8-7.7); BASOPHIL # 0.1 TH/MM3 (0-0.2); BASOPHIL % 0.8 % (0.0-2.0); EOSINOPHIL # 0.2 TH/MM3 (0-0.4); EOSINOPHIL % 2.6 % (0.0-4.0); HEMO FLAGS DIFF FINAL; LYMPH % 23.7 % (9.0-44.0); LYMPHOCYTE # 1.8 TH/MM3 (1.0-4.8); MEAN CELL VOLUME 94.9 FL (80.0-100.0); MEAN CORPUSCULAR HEMOGLOBIN 31.5 PG (27.0-34.0); MEAN CORPUSCULAR HGB CONC 33.1 % (32.0-36.0); MONO % 8.4 % (0.0-8.0); NEUT % 64.5 % (16.0-70.0); PLATELET COUNT 312 TH/MM3 (150-450); RED BLOOD COUNT 4.53 MIL/MM3 (4.00-5.30); RED CELL DISTRIBUTION WIDTH 13.4 % (11.6-17.2); WHITE BLOOD COUNT 7.6 TH/MM3 (4.0-11.0)
[2017-01-21] MEDS: METOCLOPRAMIDE HCL 10 MG/2 ML VIAL IV PRN ×3 (04:13→23:35)
[2017-01-21 04:22] LABS: ALT (GPT) 18 U/L (10-53); ANION GAP 6 MEQ/L (5-15); AST (GOT) 13 U/L (15-37); BICARBONATE 28.9 MEQ/L (21.0-32.0); BLOOD UREA NITROGEN 11 MG/DL (7-18); CHLORIDE 105 MEQ/L (98-107); GLOMERULAR FILTRATION RATE 105 ML/MIN (>89); POTASSIUM 4.1 MEQ/L (3.5-5.1); SODIUM (NA) 140 MEQ/L (136-145)
[2017-01-21 04:24] LABS: ALKALINE PHOSPHATASE 77 U/L (45-117); TOTAL BILIRUBIN ADULT 0.4 MG/DL (0.2-1.0)
[2017-01-21] MEDS: hydrALAZINE HCL 20 MG/ML VIAL IV PUSH PRN (05:09)
[2017-01-21] MEDS: cloNIDine HCL 0.1 MG TAB PO PRN ×2 (05:10→11:25)
[2017-01-21] MEDS: FAMOTIDINE 20 MG/2 ML VIAL IV PUSH SCH ×2 (08:13→21:06)
[2017-01-21] MEDS: SODIUM CHLORIDE 0.9% FLUSH 10 ML FLUSH SCH ×2 (08:13→21:07)
[2017-01-21] MEDS: DOCUSATE SODIUM 100 MG CAP PO SCH ×2 (08:13→21:06)
[2017-01-21] MEDS: LISINOPRIL 10 MG TAB PO SCH (08:13)
--- NOTE | 2017-01-21 08:13 | RADRPT ---
EXAM DATE/TIME: 01/21/2017 07:59 [facility] COMPARISON: CT BRAIN W/O CONTRAST, January 19, 2017, 20:19. INDICATIONS : Facial numbness today. RADIATION DOSE: 56.35 CTDIvol (mGy) MEDICAL HISTORY : Hypertension. pontine hemorrhage SURGICAL HISTORY : None. ENCOUNTER: Initial ACUITY: 1 day PAIN SCALE: 5/10 LOCATION: Bilateral head TECHNIQUE: Multiple contiguous axial images were obtained of the head. Using automated exposure control and adj ustment of the mA and/or kV according to patient size, radiation dose was kept as low as reasonably a chievable to obtain optimal diagnostic quality images. FINDINGS: CEREBRUM: Old basal ganglia lacunar infarcts. Scattered areas of low attenuation throughout the white matter. T he ventricles are normal for age. No evidence of midline shift, mass lesion, hemorrhage or acute inf arction. No extra-axial fluid collections are seen. POSTERIOR FOSSA: The cerebellum and brainstem are intact. The 4th ventricle is midline. The cerebellopontine angle i s unremarkable. EXTRACRANIAL: The visualized portion of the orbits is intact. SKULL: The calvaria is intact. No evidence of skull fracture. CONCLUSION: 1. Remote basal ganglia lacunar infarcts. 2. Chronic ischemic small vessel vasculopathy. Jeff He MD on January 21, 2017 at 8:10 Board Certified Radiologist. This report was verified electronically.
--- NOTE | 2017-01-21 08:47 | HHI.NSPN ---
(Jeff Arnett) History Chief Complaint: Headache, left facial numbness. (Jeff Arnett) Interval History 51-year-old obese, female presented to emergency room last evening due to onset of numbness in the right face, arm and leg. She denies any headaches and initially some nausea but no nausea and vomiting. Vomiting of bilious material. She denies any weakness although as noted difficulty with gait, namely because of the numbness in the right leg and perception related thereof. Denies any double vision or any loss of vision. CT scan of the head obtained last evening shows a 8 mm hyper density in the left lower pontine area with some periventricular white matter changes. MRI scan reviewed reveals this T2 white matter changes in the periventricular supratentorial as well as involving the pontomedullary junction. The question of hemosiderin deposits or cavernous angioma. The patient was very hypertensive with a systolic blood pressure to 270s on presentation and has been on Cardene drip and the blood pressures well regulated this point. (Jeff Arnett) Review of Systems General: Negative for: fever, chills, insomnia Respiratory: Negative for: shortness of breath, cough, sputum Cardiovascular: Negative for: chest pain Gastrointestinal: Positive for: nausea, vomitting, Negative for: diarrhea, constipation (Jeff Arnett) Exam Results Vital Signs Date Time Temp Pulse Resp B/P Pulse Ox O2 Delivery O2 Flow Rate FiO2 01/21/17 07:00 98 Room Air 01/21/17 06:00 77 01/21/17 04:00 98.1 12 156/82 01/19/17 23:03 2 Intake and Output 01/20/17 01/20/17 01/21/17 08:00 16:00 00:00 Intake Total 440 ml 404 ml 830 ml Output Total 0 ml 600 ml 550 ml Balance 440 ml -196 ml 280 ml (Jeff Arnett) Physical Examination Resp: CTA bilaterally Heart: NSR no murmurs Abd: Soft positive bs Skin: No cyanosis or erythema Muscle: Moves all 4 extremities symmetrically. Neuro: Pt awake and alert. Follows commands well. Speech clear and appropriate. Pupils equal. She has numbness in her forehead, nose, and left cheek also the right leg below the knee. (Jeff Arnett) Lab, Micro, Other Results Last Impressions Head CT 01/21/17 0000 Signed Impressions: Service Date/Time: Saturday, January 21, 2017 07:59 - CONCLUSION: 1. Remote basal ganglia lacunar infarcts. 2. Chronic ischemic small vessel vasculopathy. Jeff He MD Brain MRI 01/19/172052 Signed Impressions: Service Date/Time: Thursday, January 19, 2017 22:12 - CONCLUSION: Findings generally suspicious for demyelinating disease such as multiple sclerosis. Abnormal signal focus in the brainstem may be an area of tumefactive MS, however there may separately be a cavernoma in this region. Jerad Hernandes MD Chest X-Ray 01/19/17 1727 Signed Impressions: Service Date/Time: Thursday, January 19, 2017 17:47 - CONCLUSION: No acute disease. Jerad Hernandes MD Laboratory Tests Test 01/21/17 03:38 White Blood Count 7.6 TH/MM3 Red Blood Count 4.53 MIL/MM3 Hemoglobin 14.2 GM/DL Hematocrit 43.0 % Mean Corpuscular Volume 94.9 FL Mean Corpuscular Hemoglobin 31.5 PG Mean Corpuscular Hemoglobin 33.1 % Concent Red Cell Distribution Width 13.4 % Platelet Count 312 TH/MM3 Mean Platelet Volume 8.2 FL Neutrophils (%) (Auto) 64.5 % Lymphocytes (%) (Auto) 23.7 % Monocytes (%) (Auto) 8.4 % Eosinophils (%) (Auto) 2.6 % Basophils (%) (Auto) 0.8 % Neutrophils # (Auto) 4.9 TH/MM3 Lymphocytes # (Auto) 1.8 TH/MM3 Monocytes # (Auto) 0.6 TH/MM3 Eosinophils # (Auto) 0.2 TH/MM3 Basophils # (Auto) 0.1 TH/MM3 CBC Comment DIFF FINAL Differential Comment Sodium Level 140 MEQ/L Potassium Level 4.1 MEQ/L Chloride Level 105 MEQ/L Carbon Dioxide Level 28.9 MEQ/L Anion Gap 6 MEQ/L Blood Urea Nitrogen 11 MG/DL Creatinine 0.60 MG/DL Estimat Glomerular Filtration 105 ML/MIN Rate Random Glucose 96 MG/DL Calcium Level 9.1 MG/DL Total Bilirubin 0.4 MG/DL Aspartate Amino Transf 13 U/L (AST/SGOT) Alanine Aminotransferase 18 U/L (ALT/SGPT) Alkaline Phosphatase 77 U/L Total Protein 6.8 GM/DL Albumin 3.5 GM/DL 01/20/17 01/20/17 01/21/17 15:00 23:00 07:00 Intake Total 404 ml 830 ml 360 ml Output Total 600 ml 550 ml 453 ml Balance -196 ml 280 ml -93 ml Intake Oral 50 ml 100 ml IV Total 354 ml 830 ml 260 ml Output Urine Total 600 ml 550 ml 450 ml Stool Total 0 ml 3 ml (Jeff Arnett) Medical Decision Making Impression and Plan 1. Pontomedullary brain stem hyper density questionable small area of hypertensive bleed versus cavernous angioma. 2. Extensive periventricular white matter changes, questionable demyelinating process. 3. Malignant hypotension. PLAN Continue with regulation of her hypertension to keep the systolic blood pressure less than 160 range. She will need rehabilitation and physical, occupational therapy. She does not require any neurosurgical intervention. Neurology has been consulted. (Jeff Arnett) Attending Statement The exam, history, and the medical decision-making described in the above note were completed with the assistance of the mid-level provider. I reviewed and agree with the findings presented. I attest that I had a [id number] encounter with the patient on the same day, and personally performed and documented my assessment and findings in the medical record. Complain of left- sided facial numbness last night with persistent right face and arm and leg numbness. Has headache and some nausea but no weakness and has been ambulating to the bathroom. Hypertension regulated with by mouth meds and off Cardene drip. Follow-up CT scan of the head stable. Neurology evaluation for demyelinative process. (Ozzy Laurent MD) Jeff Arnett January 21, 2017 08:47 Ozzy Laurent MD January 21, 2017 11:16
[2017-01-21] MEDS: SODIUM CHLOR 0.9% 1000 ML INJ 1,000 ML IV SCH ×2 (08:48→21:18)
[2017-01-21 10:39] LABS: HEMOGLOBIN A1b 0.7 %; HEMOGLOBIN Ao 85.5 %; HEMOGLOBIN F 0.9 %; HEMOGLOBIN LA1C 2.3 %; HEMOGLOBIN P3 5.4 %
[2017-01-21] MEDS: LORazepam 2 MG/ML VIAL IV PUSH PRN (11:25)
--- NOTE | 2017-01-21 11:35 | RADRPT ---
EXAM DATE/TIME: 01/21/2017 11:00 [facility] COMPARISON: No previous studies available for comparison. INDICATIONS : Transischemic attack. MEDICAL HISTORY : Hypertension. Pontine hemorrhage SURGICAL HISTORY : Hysterectomy. ENCOUNTER: Initial ACUITY: 1 day PAIN SCORE: 10/10 LOCATION: Bilateral neck PEAK SYSTOLIC VELOCITIES (cm/sec): ICA/CCA RATIO: Right: 1.5 Left: 1.1 ICA: Right: 207 Left: 144 CCA: Right: 136 Left: 134 ECA: Right: 162 Left: 116 VERTEBRAL: Right: 162 antegrade Left: 96 antegrade Elevated flow velocities and ICA/CCA ratios have been found to correlate with increased degrees of vessel stenosis, calculated as percentage of diameter relative to a normal segment of distal ICA/CCA FINDINGS: RIGHT CAROTID: No significant stenosis is visualized. Scattered moderate plaque. The waveforms are within normal li mits. LEFT CAROTID: No significant stenosis is visualized. Scattered moderate plaque. The waveforms are within normal li mits. VERTEBRAL ARTERIES: Antegrade flow is seen in both vertebral arteries. MISCELLANEOUS: None. CONCLUSION: 1. Elevated velocities suggesting 50-69% stenosis within both internal carotid arteries. Jeff He MD on January 21, 2017 at 11:31 Board Certified Radiologist. This report was verified electronically.
[2017-01-21] MEDS ORDERED: ACETAMINOPHEN/HYDROcodone 325 MG/10 MG TAB PO PRN (11:45)
--- NOTE | 2017-01-21 11:46 | HHI.PR ---
Subjective Remarks Follow-up pontine ICH/hypertensive urgency 01/21/17-patient seen and examined, still complains of tingling and numbness on the right side from the face down to lower extremities Objective Vitals Vital Signs Date Time Temp Pulse Resp B/P Pulse Ox O2 Delivery O2 Flow Rate FiO2 01/21/17 10:00 67 01/21/17 08:00 98.5 69 21 137/64 97 01/21/17 08:00 75 01/21/17 07:00 98 Room Air 01/21/17 06:00 77 01/21/17 04:00 98.1 68 12 156/82 98 01/21/17 04:00 68 01/21/17 02:00 66 01/21/17 00:00 64 01/21/17 00:00 97.9 64 20 150/74 97 01/20/17 22:00 64 01/20/17 20:00 77 01/20/17 20:00 97.8 68 18 148/72 96 01/20/17 19:00 98 Room Air 01/20/17 18:00 91 01/20/17 16:00 98.0 75 14 145/69 96 01/20/17 16:00 74 01/20/17 14:00 79 01/20/17 12:00 71 01/20/17 12:00 98.2 70 15 157/81 96 I/O 01/20/17 01/20/17 01/20/17 01/21/17 01/21/17 01/21/17 07:00 15:00 23:00 07:00 15:00 23:00 Intake Total 440 ml 404 ml 830 ml 360 ml Output Total 0 ml 600 ml 550 ml 453 ml Balance 440 ml -196 ml 280 ml -93 ml Intake Oral 240 ml 50 ml 100 ml IV Total 200 ml 354 ml 830 ml 260 ml Output Urine Total 600 ml 550 ml 450 ml Stool Total 0 ml 0 ml 3 ml # Voids 4 Result Diagram: 01/21/17 0338 01/21/17337 Imaging Last Impressions Head CT 01/21/17 0000 Signed Impressions: Service Date/Time: Saturday, January 21, 2017 07:59 - CONCLUSION: 1. Remote basal ganglia lacunar infarcts. 2. Chronic ischemic small vessel vasculopathy. Jeff He MD Carotid Artery Ultrasound 01/21/17 0000 Signed Impressions: Service Date/Time: Saturday, January 21, 2017 11:00 - CONCLUSION: 1. Elevated velocities suggesting 50-69%% stenosis within both internal carotid arteries. Jeff He MD Brain MRI 01/19/172052 Signed Impressions: Service Date/Time: Thursday, January 19, 2017 22:12 - CONCLUSION: Findings generally suspicious for demyelinating disease such as multiple sclerosis. Abnormal signal focus in the brainstem may be an area of tumefactive MS, however there may separately be a cavernoma in this region. Jerad Hernandes MD Chest X-Ray 01/19/17 1727 Signed Impressions: Service Date/Time: Thursday, January 19, 2017 17:47 - CONCLUSION: No acute disease. Jerad Hernandes MD Objective Remarks GENERAL: NAD SKIN: Warm and dry. HEAD: Normocephalic. EYES: No scleral icterus. No injection or drainage. NECK: Supple, trachea midline. No JVD or lymphadenopathy. CARDIOVASCULAR: Regular rate and rhythm without murmurs, gallops, or rubs. RESPIRATORY: Breath sounds equal bilaterally. No accessory muscle use. GASTROINTESTINAL: Abdomen soft, non-tender, nondistended. MUSCULOSKELETAL: No cyanosis, or edema. BACK: Nontender without obvious deformity. No CVA tenderness. 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 Laurent). - No coagulopathy -Neurology consultation pending -Head CT noted a review without any acute finding Hypertension -Status post Nicardipine drip - Hydralazine when necessary. Continue with lisinopril 10 mg by mouth daily. Clonidine/labetalol prn Tobacco use disorder - DuoNeb's when necessary - Cessation provided DVT GI prophylaxis - Teds SCDs - No pharmacological DVT prophylaxis due to ICH - Pepcid Transferred to Jeff [place] MD January 21, 2017 11:46
--- NOTE | 2017-01-21 12:13 | RADRPT ---
EXAM DATE/TIME: 01/21/2017 11:45 [facility] COMPARISON: No previous studies available for comparison. INDICATIONS : Right hand and foot numbness. MEDICAL HISTORY : None. SURGICAL HISTORY : Hysterectomy. ENCOUNTER: Subsequent ACUITY: 2 day PAIN SCORE: 0/10 LOCATION: cranial Please note a normal MRA of the brain does not entirely exclude the possibility of a small aneurysm, nor the possibility of distal intracranial vessel disease. TECHNIQUE: 3D time of flight MRA was performed. Source images, multiplanar STS MIP, and 3D volume MIP reconstru ctions were reviewed. FINDINGS: There is excellent visualization of the major intracranial arteries out to the second-order branch ve ssels. There is no evidence for aneurysm, vessel truncation or stenosis, and no evidence for vascula r malformation. The anterior communicating artery noted. Tiny bilateral posterior communicating arter ies. Mild narrowing in the right mid posterior cerebral artery. There are scattered intraluminal irre gularities including distal left middle cerebral artery. No significant stenosis distal carotid arter ies.. CONCLUSION: 1. No large vessel stenosis or aneurysm. 2. Mild narrowing in the right mid posterior cerebral artery and scattered atherosclerotic changes. 3. Normal variants as described above. Jeff He MD on January 21, 2017 at 12:07 Board Certified Radiologist. This report was verified electronically.
--- NOTE | 2017-01-21 12:49 | MB ---
cc: LONDON MCKEON M.D. DATE OF CONSULTATION: 01/21/2017 REASON FOR CONSULTATION: Possible MS. HISTORY OF PRESENT ILLNESS: 50-year-old woman who came in with paresthesias of the face, headache. She was in her car after work and started having pins and needles in face, legs also a dull ache and had some nausea and dizziness. She had a CT and this showed a possible pontine hemorrhage, evaluated by neurosurgery and there are white matter abnormalities of the MRI concerning for MS but there is no enhancement. The patient states that she has never had symptoms like this in the past, never lost vision, never had optic neuritis, never had numbness, tingling or weakness prior to this event. PAST MEDICAL HISTORY: She has a past medical history hypertension. PAST SURGICAL HISTORY: Hysterectomy. ACTIVE MEDICATIONS: None reported. SOCIAL HISTORY: Smokes a pack a day. No drugs or alcohol. FAMILY HISTORY: Her son has seizures. PHYSICAL EXAMINATION: VITAL SIGNS: On exam, temperature 98.5, pulse 67, respiratory rate 21, blood pressure 137/64, satting at 97% on room air. NECK: The neck is supple. I do not appreciate any bruits. HEART: Regular. LUNGS: Clear. NEUROLOGICAL EXAMINATION: She is awake, alert, she is oriented and fluent. Her pupils are reactive. No afferent pupillary defect. Extraocular muscles and visual levin are full. Face symmetrical. Tongue midline. She can feel on the right side of her face it just feelings tingly as does the right side of the body. There is no drift. No leg lag. Cerebellar testing is normal. Toes are downgoing DTRs are trace to 1+. Gait is withheld at this time. IMAGING STUDIES: MRI brain did show suspicious for demyelinating disease, abnormal signal focus in the brain stem. There may be an area of effects of MS; however, may be separate for such as a cavernoma. IMPRESSION: Abnormal MRI of questionable demyelinating disease. Will go ahead and check for demyelinating disease via a spinal tap for MS. Will get an CANDIE. I will also get an EEG for this tingling. Carotid ultrasound MRA as well. She does have hypertension and her blood pressure was fairly elevated when she came in at 219/141. Mindset may have predisposed her to the paresthesias that she felt; however, no explanation at this point in time for the demyelinating disease. It certainly could still be chronic white matter changes, ischemic changes. I took the liberty of going ahead and ordering a spinal tap; she is in agreement. Will get an MRA [place], carotid ultrasound and check an CANDIE as well and I will obtain an EEG making sure this is not a seizure-like event, although less likely. Further recommendations will be made accordingly. MD ARMOND Brar/GABRIEL /10:53 AM /12:41 PM
--- NOTE | 2017-01-21 20:39 | MG ---
cc: LONDON MCKEON M.D. Lab No: [id number] Date: Age: 51 Sex: F Race: [facility]OM: [facility]. Awake, drowsy, asleep study with photic stimulation. CT shows vasoganglionic lacunes. MRI is suspicious for MS demyelinating disease. Admitted with hypertension and right side paresthesias. MEDICATIONS: Catapres. Lisinopril. DESCRIPTION OF RECORD: Overall quite a bit of muscle artifact, a lot of movement but overall she has an algorithm of 8 hertz, 20 to 30 microvolts. She falls asleep. There is some snoring. There is some questionable sharp waves at epoch 40 but the patient was asleep and this may be a normal variant in sleep. She continues to snore, not sure if this medication effect or if the patient is actually fatigued. I am not sure if this was prior to her going to MRI and receiving some Ativan. Photic stimulation does elicit a driving response and there is some questionable phase reversibility of the left temporal C3-T5, T5-01 during the photic stimulatory portion. IMPRESSION: Questionable abnormal EEG due to possible occasional sharp waves as well as phase reversals over the left restorationism lead as described in the body of the paragraph. Clinical correlation and monitoring. MD ARMOND Brar/GABRIEL /8:28 PM /8:34 PM
[2017-01-22] VITALS (7 sets, daily range): BP systolic 120–162; BP diastolic 58–79; PULSE 62–74; RESP 12–20; TEMP 97.9–98.7; O2SAT 95–97
[2017-01-22] MEDS: CHLORHEXIDINE GLUCONATE 2 % 1 PACK (2 CLOTHS) TOP SCH (04:00)
[2017-01-22] MEDS: MORPHINE SULFATE 4 MG/ML INJ IV PRN ×8 (04:04→23:15)
[2017-01-22] MEDS: ONDANSETRON HCL 4 MG/2 ML VIAL IV PRN (08:44)
[2017-01-22] MEDS: FAMOTIDINE 20 MG/2 ML VIAL IV PUSH SCH ×2 (08:45→20:46)
[2017-01-22] MEDS: DOCUSATE SODIUM 100 MG CAP PO SCH ×2 (08:45→20:45)
[2017-01-22] MEDS: LISINOPRIL 10 MG TAB PO SCH (08:45)
[2017-01-22] MEDS: SODIUM CHLORIDE 0.9% FLUSH 10 ML FLUSH SCH ×2 (08:45→20:49)
[2017-01-22] MEDS: SODIUM CHLOR 0.9% 1000 ML INJ 1,000 ML IV SCH ×2 (08:49→20:49)
--- NOTE | 2017-01-22 09:12 | HHI.PR ---
Subjective Remarks Follow-up pontine ICH/hypertensive urgency 01/21/17-patient seen and examined, still complains of tingling and numbness on the right side from the face down to lower extremities 01/22/17-patient seen and examined reports improvement of facial tingling however continue tracking into right upper and lower extremity. Initially patient refused both brain MRI as well as spinal tap however now she is agreeable. Objective Vitals Vital Signs Date Time Temp Pulse Resp B/P Pulse Ox O2 Delivery O2 Flow Rate FiO2 01/22/17 05:16 69 01/22/17 04:44 97 Room Air 01/22/17 04:00 98.1 68 20 141/72 95 01/22/17 00:00 97.9 70 20 120/58 97 01/21/17 20:00 98.7 69 18 143/64 96 01/21/17 18:00 98.3 69 18 129/61 98 01/21/17 16:00 98.2 70 26 147/63 98 01/21/17 16:00 68 01/21/17 14:00 70 01/21/17 12:00 65 01/21/17 12:00 98.6 71 23 133/65 98 01/21/17 10:00 67 I/O 01/21/17 01/21/17 01/21/17 01/22/17 01/22/17 01/22/17 07:00 15:00 23:00 07:00 15:00 23:00 Intake Total 360 ml 800 ml 672 ml Output Total 453 ml 500 ml Balance -93 ml 300 ml 672 ml Intake Oral 100 ml 300 ml IV Total 260 ml 500 ml 672 ml Output Urine Total 450 ml 500 ml Stool Total 3 ml # Voids 2 Result Diagram: 01/21/17 0338 01/21/17 0338 Imaging Last Impressions Head Magnetic Resonance Angiography 01/21/17 0000 Signed Impressions: Service Date/Time: Saturday, January 21, 2017 11:45 - CONCLUSION: 1. No large vessel stenosis or aneurysm. 2. Mild narrowing in the right mid posterior cerebral artery and scattered atherosclerotic changes. 3. Normal variants as described above. Jeff He MD Head CT 01/21/17 0000 Signed Impressions: Service Date/Time: Saturday, January 21, 2017 07:59 - CONCLUSION: 1. Remote basal ganglia lacunar infarcts. 2. Chronic ischemic small vessel vasculopathy. Jeff He MD Carotid Artery Ultrasound 01/21/17 0000 Signed Impressions: Service Date/Time: Saturday, January 21, 2017 11:00 - CONCLUSION: 1. Elevated velocities suggesting 50-69%% stenosis within both internal carotid arteries. Jeff He MD Brain MRI 01/19/173 Signed Impressions: Service Date/Time: Thursday, January 19, 2017 22:12 - CONCLUSION: Findings generally suspicious for demyelinating disease such as multiple sclerosis. Abnormal signal focus in the brainstem may be an area of tumefactive MS, however there may separately be a cavernoma in this region. Jerad Hernandes MD Chest X-Ray 01/19/17 1727 Signed Impressions: Service Date/Time: Thursday, January 19, 2017 17:47 - CONCLUSION: No acute disease. Jerad Hernandes MD Objective Remarks GENERAL: NAD SKIN: Warm and dry. HEAD: Normocephalic. EYES: No scleral icterus. No injection or drainage. NECK: Supple, trachea midline. No JVD or lymphadenopathy. CARDIOVASCULAR: Regular rate and rhythm without murmurs, gallops, or rubs. RESPIRATORY: Breath sounds equal bilaterally. No accessory muscle use. GASTROINTESTINAL: Abdomen soft, non-tender, nondistended. MUSCULOSKELETAL: No cyanosis, or edema. BACK: Nontender without obvious deformity. No CVA tenderness. 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 Laurent). - No coagulopathy -Neurology consultation input appreciated. EEG abnormal pending further recommendation from neurology -Head CT noted a review without any acute finding -Carotid ultrasound noted with finding of 50-60% stenosis bilateral ICA -Brain MRA negative Brain MRI pending as well as spinal time Hypertension -Status post Nicardipine drip - Hydralazine when necessary. Continue with lisinopril 10 mg by mouth daily. Clonidine/labetalol prn Tobacco use disorder - DuoNeb's when necessary - Cessation provided DVT GI prophylaxis - Teds SCDs - No pharmacological DVT prophylaxis due to ICH - Jeff Casillas MD January 22, 2017 09:12
[2017-01-22] MEDS: LORazepam 2 MG/ML VIAL IV PUSH PRN (10:43)
--- NOTE | 2017-01-22 12:09 | PD.RAD ---
Post Procedure Progress Note Pre Procedure Diagnosis: (1) Pontine hemorrhage Post Procedure Diagnosis: (1) Pontine hemorrhage Procedure Date: January 22, 2017 Supervising Radiologist: Matheus Beck JR Proceduralist/Assist: Margoth Roy, RT(R), RT Alejandrina(R)() Anesthesia: Local Plan of Activity Patient to Unit: Nursing Unit Patient Condition: Good See PACS Report for procedural detail/treatment Spinal Procedure Lumbar Puncture L3-L4 Fluid Removal (CCs): 9 Fluid Description: Clear Puncture Time: 11:57 Findings: Opening pressure: 21 cmH2O Jr. Kiran,Matheus Nobles MD January 22, 2017 12:09
[2017-01-22 12:50] LABS: GROSS BLOOD TUBE #1 0 (0); GROSS BLOOD TUBE #2 0 (0); GROSS BLOOD TUBE #3 0 (0); GROSS BLOOD TUBE #4 0 (0); SUPERNATE COLOR TUBE #1 CLEAR (CLEAR); SUPERNATE COLOR TUBE #2 CLEAR (CLEAR); SUPERNATE COLOR TUBE #3 CLEAR (CLEAR); SUPERNATE COLOR TUBE #4 CLEAR (CLEAR); VOLUME TUBE # 1 2.2 ML; VOLUME TUBE # 4 3.1 ML
[2017-01-22 13:19] LABS: CSF LYMPHOCYTES 0 %; CSF NEUTROPHILS 0 %; WBC TUBE #4 0 /MM3 (0-10)
--- NOTE | 2017-01-22 15:31 | RADRPT ---
EXAM DATE/TIME: 01/22/2017 11:59 [facility] COMPARISON: No previous studies available for comparison. INDICATIONS : Patient with possible MS in need of lumbar puncture with opening pressure. MEDICAL HISTORY : 1.Hypertension SURGICAL HISTORY : 1.Hysterectomy ENCOUNTER: Initial ACUITY: 4 - 6 days PAIN SCORE: 0/10 LUMBAR PUNCTURE TIME: 83649 hours FLUORO TIME: 0.61 minutes ACCESS LEVEL: L3-4 OPENING PRESSURE: 21 cm of water CLOSING PRESSURE: Not requested. FLUID: 9 cc of clear CSF was collected and sent to the laboratory for analysis. PROCEDURE : 1. Fluoroscopic guided lumbar puncture. 2. Recording of opening pressure. The risks, benefits and alternatives to the procedure were explained and verbal and written consent w as obtained. The site was prepped in sterile fashion. Full sterile technique was used, including ca p, mask, sterile gloves and gown and a large sterile sheet. Hand hygiene and 2% chlorhexidine and/or betadine/alcohol prep was utilized per protocol for cutaneous antisepsis. The skin and subcutaneous tissues were infiltrated with local anesthetic solution. With fluoroscopic guidance the lumbar thecal sac was punctured at the above level described above and the opening pressure was recorded. The above described fluid was removed without difficulty. The patient tolerated the procedure well and there were no complications. CONCLUSION: Uncomplicated fluoroscopically guided lumbar puncture with pressures as above. Matheus Beck Jr., MD on January 22, 2017 at 15:29 Board Certified Radiologist. This report was verified electronically.
[2017-01-22] MEDS ORDERED: IOHEXOL 350 MG/ML 10 ML VIAL (for RAD DIAG) IV ONE (18:21)
[2017-01-23] VITALS (8 sets, daily range): BP systolic 156–190; BP diastolic 74–108; PULSE 63–77; RESP 16–22; TEMP 97.9–98.6; O2SAT 94–98
[2017-01-23] MEDS: CHLORHEXIDINE GLUCONATE 2 % 1 PACK (2 CLOTHS) TOP SCH (03:06)
[2017-01-23] MEDS: SODIUM CHLORIDE 0.9% FLUSH 10 ML FLUSH SCH ×2 (09:38→20:11)
[2017-01-23] MEDS: FAMOTIDINE 20 MG/2 ML VIAL IV PUSH SCH ×2 (09:38→20:11)
[2017-01-23] MEDS: LISINOPRIL 10 MG TAB PO SCH (09:38)
[2017-01-23] MEDS: DOCUSATE SODIUM 100 MG CAP PO SCH ×2 (09:38→20:11)
[2017-01-23] MEDS: SODIUM CHLOR 0.9% 1000 ML INJ 1,000 ML IV SCH ×2 (09:46→20:14)
[2017-01-23] MEDS: cloNIDine HCL 0.1 MG TAB PO PRN ×2 (09:56→20:11)
[2017-01-23] MEDS: MORPHINE SULFATE 4 MG/ML INJ IV PRN ×2 (09:59→16:16)
--- NOTE | 2017-01-23 10:49 | HHI.PR ---
Subjective Remarks Follow-up pontine ICH/hypertensive urgency 01/21/17-patient seen and examined, still complains of tingling and numbness on the right side from the face down to lower extremities 01/22/17-patient seen and examined reports improvement of facial tingling however continue tracking into right upper and lower extremity. Initially patient refused both brain MRI as well as spinal tap however now she is agreeable. 01/23/17-patient seen and examined, wanting reports tingling to right arm/ fingers and foot/toes. Otherwise no other issues. She status post spinal tap 01/22/17 Objective Vitals Vital Signs Date Time Temp Pulse Resp B/P Pulse Ox O2 Delivery O2 Flow Rate FiO2 01/23/17 05:00 156/88 01/23/17 04:00 98.1 73 16 190/90 98 01/23/17 00:00 98.1 77 16 157/82 97 01/22/17 20:50 Room Air 01/22/17 20:00 98.7 74 16 156/66 97 01/22/17 16:00 Room Air 01/22/17 16:00 97.9 70 12 140/79 97 01/22/17 12:00 Room Air I/O 01/22/17 01/22/17 01/22/17 01/23/17 01/23/17 01/23/17 07:00 15:00 23:00 07:00 15:00 23:00 Intake Total 672 ml 432 ml 360 ml 240 ml Balance 672 ml 432 ml 360 ml 240 ml Intake Oral 360 ml 240 ml IV Total 672 ml 432 ml # Voids 2 2 # Bowel Movements 1 0 Result Diagram: 01/21/17 0338 01/21/17 0338 Objective Remarks GENERAL: NAD SKIN: Warm and dry. HEAD: Normocephalic. EYES: No scleral icterus. No injection or drainage. NECK: Supple, trachea midline. No JVD or lymphadenopathy. CARDIOVASCULAR: Regular rate and rhythm without murmurs, gallops, or rubs. RESPIRATORY: Breath sounds equal bilaterally. No accessory muscle use. GASTROINTESTINAL: Abdomen soft, non-tender, nondistended. MUSCULOSKELETAL: No cyanosis, or edema. BACK: Nontender without obvious deformity. No CVA tenderness. 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 Laurent). - No coagulopathy -Neurology consultation input appreciated. EEG abnormal pending further recommendation from neurology -Head CT noted a review without any acute finding -Carotid ultrasound noted with finding of 50-60% stenosis bilateral ICA -Brain MRA negative -Status post spinal tap 01/22/17 pending final report Hypertension -Status post Nicardipine drip - Hydralazine when necessary. Continue with lisinopril 10 mg by mouth daily. Clonidine/labetalol prn Tobacco use disorder - DuoNeb's when necessary - Cessation provided DVT GI prophylaxis - Teds SCDs - No pharmacological DVT prophylaxis due to ICH - Jeff Casillas MD January 23, 2017 10:49
[2017-01-23 16:17] LABS: OLIGOCLONAL BANDING CSF 0 bands (()); OLIGOCLONAL BANDING INTERPRET 0 bands (<4); OLIGOCLONAL BANDING SERUM 0 bands (())
--- NOTE | 2017-01-23 23:35 | RADRPT ---
EXAM DATE/TIME: 01/22/2017 18:15 Indication: Ischemic attack and abnormal carotid ultrasound demonstrating elevated velocities suggesting 50-69% s tenosis in both internal carotid arteries. Technique: Standard CT angiogram examination with 3-D reconstructions. Contrast: 73 cc Omnipaque 350 iohexol intravenously. Comparison: Carotid ultrasound exam from 01/21/2014: Findings: The visualized portions of the aortic arch are unremarkable and there is a normal 3 branch pattern wi th no evidence of ostial stenosis. The common carotid and external carotid arteries appear patent. Th e vertebral arteries are intact. There is eccentric calcification in the proximal left internal carot id artery with approximate 30% diameter narrowing on the axial images. On the right there is more cir cumferential plaque in the proximal internal carotid artery with approximate 60% diameter stenosis. CONCLUSION: 1. Calcific plaquing with approximate 60% stenosis in the proximal right internal carotid artery. 2. Calcific plaquing with approximate 30% stenosis in the proximal left internal carotid artery. Jermaine Clark MD on January 22, 2017 at 23:06 Board Certified Radiologist. This report was verified electronically.
[2017-01-23 23:53] LABS: CSF ANGIOTENSIN CONV ENZYME LESS THAN 5 U/L (< OR = 15)
[2017-01-24] VITALS: BP 144/71; PULSE 64; RESP 16; TEMP 97.4; O2SAT 96
[2017-01-24] MEDS: CHLORHEXIDINE GLUCONATE 2 % 1 PACK (2 CLOTHS) TOP SCH (03:52)
[2017-01-24 04:13] VITALS: BP 178/80; PULSE 60; RESP 18; TEMP 98.2; O2SAT 98
[2017-01-24] MEDS: cloNIDine HCL 0.1 MG TAB PO PRN (07:31)
[2017-01-24 08:00] VITALS: BP 155/92; PULSE 62; RESP 20; TEMP 98.1; O2SAT 95
[2017-01-24] MEDS: LISINOPRIL 10 MG TAB PO SCH (09:07)
[2017-01-24] MEDS: DOCUSATE SODIUM 100 MG CAP PO SCH (09:08)
[2017-01-24] MEDS: FAMOTIDINE 20 MG/2 ML VIAL IV PUSH SCH (09:09)
[2017-01-24] MEDS: SODIUM CHLORIDE 0.9% FLUSH 10 ML FLUSH SCH (09:10)
[2017-01-24 12:00] VITALS: BP 155/88; PULSE 65; RESP 20; TEMP 98.3; O2SAT 97
--- NOTE | 2017-01-24 12:41 | PD.AMA ---
Against Medical Advice Note Discharge Disposition: Against Medical Advice AMA Statement Patient Cassie Wilson has decided to leave the hospital against medical advice. This patient has the capacity to refuse care and understands the risks of leaving, including permanent disability and/or , and has had an opportunity to ask questions about her condition. The patient has been informed that she may return for care at any time, and follow up has been arranged/ advised. Jeff Chaudhry MD January 24, 2017 12:40
--- NOTE | 2017-01-24 12:41 | HHI.DS ---
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 Onset of symptoms just prior to arrival. Patient states that she got in her car after work today and experienced pins and needles feeling of her leg which rapidly ascended to the right arm and face. This was followed by dull right sided headache and accompanying nausea and mild dizziness. 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 CBC/BMP: 01/21/17 0338 01/21/17 0338 Significant Findings Laboratory Tests Test 01/22/17 11:57 CSF RBC (Tube 4) 4 /MM3 (NONE) PE at Discharge GENERAL: NAD SKIN: Warm and dry. HEAD: Normocephalic. EYES: No scleral icterus. No injection or drainage. NECK: Supple, trachea midline. No JVD or lymphadenopathy. CARDIOVASCULAR: Regular rate and rhythm without murmurs, gallops, or rubs. RESPIRATORY: Breath sounds equal bilaterally. No accessory muscle use. GASTROINTESTINAL: Abdomen soft, non-tender, nondistended. MUSCULOSKELETAL: No cyanosis, or edema. BACK: Nontender without obvious deformity. No CVA tenderness. Hospital Course Although patient left AMA on 01/24/17, she was treated for Pontine ICH - No neurosurgical intervention indicated - Continue with lisinopril - Neurosurgery consult noted (Dr. Laurent). - No coagulopathy -Neurology consultation input appreciated. EEG abnormal pending further recommendation from neurology -Head CT noted a review without any acute finding -Carotid ultrasound noted with finding of 50-60% stenosis bilateral ICA -Brain MRA negative -Status post spinal tap 01/22/17 pending final report Hypertension -Status post Nicardipine drip - Hydralazine when necessary. Continue with lisinopril 10 mg by mouth daily. Clonidine/labetalol prn Tobacco use disorder - DuoNeb's when necessary - Cessation provided DVT GI prophylaxis - Teds SCDs - No pharmacological DVT prophylaxis due to ICH - Pepcid Pt Condition on Discharge: Stable Discharge Disposition: Discharge Home Discharge Time: <= 30 minutes Jeff Chaudhry MD January 24, 2017 12:41
[2017-01-24 17:32] LABS: LYME IGG IMMUNOBLOT CSF None Detected bands (None Detected); LYME IGM IMMUNOBLOT CSF None Detected bands (None Detected)
[2017-01-25 19:53] LABS: VDRL CSF NON-REACTIVE (())
== END 2017-01-24 12:35 | disposition left against medical advice (07) | DRG 65 ==
LOC: NEPC 17:11 → NEDA 19:15 → N03A 23:51 → N04B 01-21 18:00
PROVIDERS: ADMIT Hospitalist; ATTEND Hospitalist
PROC: 009U3ZX Drainage of Spinal Canal, Percutaneous Approach, Diagnostic (ICD-10-PCS; principal; 2017-01-22)
PROC: B01BZZZ Fluoroscopy of Spinal Cord (ICD-10-PCS; 2017-01-22)
DX: I61.3 Nontraumatic intracerebral hemorrhage in brain stem (principal); I16.1 Hypertensive emergency; I10 Essential (primary) hypertension; F17.210 Nicotine dependence, cigarettes, uncomplicated; E66.9 Obesity, unspecified; Z68.28 Body mass index [BMI] 28.0-28.9, adult
CPT/HCPCS: 62270; 70450; 70498; 70544; 70553; 71010; 77003; 80048; 80053; 80061; 80307; 82164; 82550; 82552; 82945; 83036; 83873; 83916; 84157; 84443; 84484; 85025; 85610; 85730; 86038; 86592; 86618; 87015; 87070; 87116; 87205; 87206; 87641; 89051; 93005; 93306; 93880; 95819; 96361; 96365; 96375; A9579; J0360; J0780; J1200; J1885; J2060; J2270; J2405; J2765; J7030; J7050; Q9967